=== PATIENT | female | born 1950 | race Two or more races ===

== ENCOUNTER 2019-03-30 07:52 | Outpatient (CLI) | payer OTHER | END 2019-03-30 07:58 | disposition home or self-care (01) | LOC: SONOGRAMA 07:52 | DX: D35.1 Benign neoplasm of parathyroid gland (principal) ==

== ENCOUNTER → 2019-06-26 | Outpatient (CLI) | payer OTHER | END | disposition home or self-care (01) | LOC: NUCLEAR 09:30 | DX: E21.3 Hyperparathyroidism, unspecified (principal) | CPT/HCPCS: 78070; A9500 ==

== ENCOUNTER 2020-02-07 11:31 | Outpatient (CLI) | payer OTHER | END 2020-02-07 11:40 | disposition home or self-care (01) | LOC: MAMO-SONO 11:31 | PROVIDERS: ATTEND Internal Medicine | DX: Z12.31 Encounter for screening mammogram for malignant neoplasm of breast (principal); N63.10 Unspecified lump in the right breast, unspecified quadrant; N63.20 Unspecified lump in the left breast, unspecified quadrant ==

== ENCOUNTER 2021-10-07 11:08 | Outpatient (CLI) | payer OTHER | END 2021-10-07 11:10 | disposition home or self-care (01) | LOC: MAMO-SONO 11:08 | PROVIDERS: ATTEND Internal Medicine | DX: Z12.31 Encounter for screening mammogram for malignant neoplasm of breast (principal); N63.0 Unspecified lump in unspecified breast ==

== ENCOUNTER 2022-04-06 13:10 | Outpatient (CLI) | payer OTHER | END 2022-04-06 13:11 | disposition home or self-care (01) | LOC: NUCLEAR 13:10 | DX: Z01.810 Encounter for preprocedural cardiovascular examination (principal) ==

== ENCOUNTER 2022-04-13 12:08 | Outpatient (CLI) | payer OTHER | END 2022-04-13 12:13 | disposition home or self-care (01) | LOC: RAD 12:08 | PROVIDERS: ATTEND Internal Medicine | DX: Z01.818 Encounter for other preprocedural examination (principal); J44.1 Chronic obstructive pulmonary disease with (acute) exacerbation ==

== ENCOUNTER 2024-04-26 10:03 | Outpatient (CLI) | payer OTHER | END 2024-04-26 10:04 | disposition home or self-care (01) | LOC: NUCLEAR 10:03 | PROVIDERS: ATTEND Internal Medicine | DX: R00.0 Tachycardia, unspecified (principal) ==

== ENCOUNTER → 2024-04-26 | Outpatient (CLI) | payer OTHER | END | disposition home or self-care (01) | LOC: RAD 09:39 | PROVIDERS: ATTEND Internal Medicine | DX: M15.0 Primary generalized (osteo)arthritis (principal); M54.17 Radiculopathy, lumbosacral region; M25.552 Pain in left hip ==

== ENCOUNTER 2024-09-28 14:33 | Outpatient (CLI) | payer OTHER | END 2024-09-28 14:34 | disposition home or self-care (01) | LOC: MAMO-SONO 14:33 | PROVIDERS: ATTEND Internal Medicine | DX: N64.4 Mastodynia (principal); R92.8 Other abnormal and inconclusive findings on diagnostic imaging of breast; R10.9 Unspecified abdominal pain; R94.5 Abnormal results of liver function studies; Z12.31 Encounter for screening mammogram for malignant neoplasm of breast ==